=== PATIENT | female | born 1995 | race Caucasian/White ===

== ENCOUNTER → 2019-03-10 14:10 | Outpatient (CLI) | payer OTHER, MEDICAID, SELFPAY ==
--- NOTE | 2019-03-10 | DI.US.S_ITS ---
PROCEDURE: US PELVIC COMPLETE INDICATIONS: OVARIAN CYSTS TECHNIQUE: Real-time scanning was performed of the pelvic organs, with image documentation. Additional endovaginal scanning was necessary due to incomplete visualization of the adnexal and endometrial structures by transabdominal scanning. COMPARISON: [facility], [place], PELVIC COMPLETE, 04/11/2017, 12:29. [facility], [place], PELVIC COMPLETE, 02/02/2017, 13:41. FINDINGS: Transabdominal scanning: Limited scanning through the kidneys shows no hydronephrosis. No pathologic free abdominal or pelvic fluid. Endovaginal scanning: Uterus: Uterus is normal in size at 4.0 x 4.7 x 7.2 cm, anteverted. The endometrium measures 7.4 mm in combined thickness. Ovaries: The right ovary measures 5.1 x 2.6 x 7.1 cm, and contains a simple cyst measuring up to 2.9 x 4.1 x 3.9 cm enlarging the ovary. The left ovary measures 5.5 x 3.7 x 4.1 cm and also contains 2 complex cysts measuring up to 4.5 x 2.8 x 3.4 cm and 2.1 x 1.9 x 1.5 cm respectively. Each of these contain low level internal echoes to the degree that hemorrhagic ovarian cysts are suspected. An unexpected finding is the presence of 2 echogenic masses near the ureteral vesicular junction, on the left measuring up to 1.2 x 1.6 x 1.9 cm and on the right measuring up to 2.6 x 1.1 x 1.6 cm. The structure on the left has its epicenter at the bladder mucosal level and the structure on the right has its epicenter peripheral to the mucosal level. IMPRESSION: Within the ovaries bilaterally there are cystic structures enlarging each ovary, and the cyst on the right is simple measuring up to 4.1 cm. There are 2 cysts on the left that are complex, which by appearance in a young patient may represent hemorrhagic ovarian cysts. Therefore, followup in 6-8 weeks is recommended to further assess these structures. Followup also in 6-8 weeks is recommended for the hyperechoic ovoid sharply demarcated and likely benign solid structures at work posterior to the bladder mucosal level adjacent to the expected point of insertion of the ureters bilaterally through the bladder wall. The likelihood of malignancy within the bladder mucosal layer in a young patient age 22 is considered very low. These structures are easily visualized by ultrasound and therefore followup by ultrasound is recommended to assess for stability of appearance over time. Dictated by: Nacho Dias M.D. on 03/10/2019 at 17:10 Approved by: Nacho Dias M.D. on 03/10/2019 at 17:18
== END ==
PROVIDERS: PCP Physician Assistant Medical; Visit Provider Physician Assistant Medical
DX: N83.292 Other ovarian cyst, left side (principal); N83.291 Other ovarian cyst, right side
CPT/HCPCS: 76830; 76856

== ENCOUNTER → 2019-07-17 11:26 | Outpatient (CLI) | payer OTHER, MEDICAID, SELFPAY ==
--- NOTE | 2019-07-17 | DI.US.S_ITS ---
PROCEDURE: US PELVIC COMPLETE INDICATIONS: FOLLOW UP CYSTIC MASSES TECHNIQUE: Real-time scanning was performed of the pelvic organs, with image documentation. Additional endovaginal scanning was necessary due to incomplete visualization of the adnexal and endometrial structures by transabdominal scanning. COMPARISON: [facility], , [place] PELVIC COMPLETE, 03/10/2019, 14:37. FINDINGS: Transabdominal scanning: Limited scanning through the kidneys shows no hydronephrosis. No pathologic free abdominal or pelvic fluid. Endovaginal scanning: Uterus: Uterus is normal in size at 6.2 x 4.2 x 3.1 cm. mild arcuate uterine morphology noted. The endometrium measures 4.0 mm in combined thickness. Ovaries: Normal size measuring 4.2 x 3.1 x 2.7 cm on the right and 4.2 x 3.8 x 2.4 cm on the left. Complex, hemorrhagic appearing left ovarian mass as seen on prior examination has resolved in today's examination demonstrating 3 mildly complex cysts, largest measuring up to 1.8 cm. Previously seen simple right ovarian cyst has resolved and today's exam demonstrates a mildly complex right ovarian cyst measuring up to 1.4 cm. Cystic tubular shaped structure seen within the right adnexa separate from the ovary suspicious for hydrosalpinx. Echogenic posterior bladder wall masses redemonstrated is which are near the UVJ bilaterally and unchanged measuring up to 2.8 cm on the right and 1.9 cm on the left. IMPRESSION: 1. Interval resolution of larger complex left ovarian cysts and today's study demonstrating new small bilateral complex cysts likely hemorrhagic. Differential would also include endometrioma. Continued sonographic surveillance recommended. 2. Posterior bladder wall mass near the UVJ bilaterally unchanged over time which may be postoperative in nature. 3. Cystic tubular shaped structure within the right adnexa is suspicious for hydrosalpinx. Followup recommended. Dictated by: Deven TEE Interpreted: Mark Allan MD on 07/17/2019 at 13:19 Approved by: Mark Allan M.D. on 07/17/2019 at 14:58
== END ==
PROVIDERS: Family Provider Physician Assistant Medical; PCP Physician Assistant Medical; Visit Provider Family Medicine
DX: N83.292 Other ovarian cyst, left side (principal); N83.291 Other ovarian cyst, right side
CPT/HCPCS: 76856

== ENCOUNTER → 2021-07-22 10:23 | Outpatient (CLI) | payer OTHER, MEDICAID, SELFPAY ==
[2021-07-22 19:25] LABS: COVID19 - ORCAS (NP or Nasal) Negative (Negative)
== END ==
PROVIDERS: Family Provider Physician Assistant Medical; PCP Physician Assistant Medical; Visit Provider Family Medicine
DX: Z20.822 Contact with and (suspected) exposure to COVID-19 (principal)
CPT/HCPCS: U0003

== ENCOUNTER → 2021-11-18 08:36 | Outpatient (CLI) | payer OTHER, MEDICAID, SELFPAY ==
[2021-11-18 20:52] LABS: COVID19 - ORCAS (NP or Nasal) Negative (Negative)
== END ==
PROVIDERS: Family Provider Physician Assistant Medical; PCP Physician Assistant Medical; Visit Provider Physician Assistant Medical
DX: Z20.822 Contact with and (suspected) exposure to COVID-19 (principal)
CPT/HCPCS: U0003

== ENCOUNTER → 2022-02-01 16:32 | Outpatient (CLI) | payer OTHER, MEDICAID, SELFPAY | PROVIDERS: Family Provider Physician Assistant Medical; PCP Physician Assistant Medical; Visit Provider Physician Assistant Medical | DX: R30.0 Dysuria (principal) | CPT/HCPCS: 81002; 87086 ==

== ENCOUNTER → 2022-02-09 10:23 | Outpatient (CLI) | payer OTHER, MEDICAID, SELFPAY ==
[2022-02-11 23:06] LABS: Chlamydia trachomatis NAA Negative (Negative); Neisseria gonorrhoeae NAA Negative (Negative)
== END ==
PROVIDERS: Family Provider Physician Assistant Medical; PCP Physician Assistant Medical; Visit Provider Physician Assistant Medical
DX: R30.0 Dysuria (principal)
CPT/HCPCS: 81002; 87086; 87491; 87591

== ENCOUNTER 2024-06-16 19:21 | Emergency (ER) | payer OTHER, SELFPAY ==
[2024-06-16] VITALS (7 sets, daily range): BP systolic 105–128; BP diastolic 55–82; PULSE 58–105; RESP 18; TEMP 36.9; O2SAT 96–100; BMI 24.2
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
== END 2024-06-16 22:58 | disposition home or self-care (01) ==
PROVIDERS: Emergency Provider Emergency Medicine; Family Provider Physician Assistant Medical; PCP Physician Assistant Medical
DX: S09.90XA Unspecified injury of head, initial encounter (principal); W22.8XXA Striking against or struck by other objects, initial encounter
CPT/HCPCS: 70450; 99281; 99284